=== PATIENT | female | born 2000 | race Hispanic/Latino ===

== ENCOUNTER 2019-02-12 09:30 | Outpatient (CLI) | payer OTHER ==
--- NOTE | 2019-02-12 11:49 | ULT ---
PELVIC ULTRASOUND: Date: 02/12/19 COMPARISON: None. HISTORY: Abnormal uterine bleeding. TECHNIQUE: Multiplanar Pedro scale and color Doppler images were obtained in a transabdominal pelvic ultrasound. A transvaginal approach was not performed as the patient is not sexually active. Spectral analysis of the Doppler waveforms of the ovaries were performed. FINDINGS: The uterus is normal in size and appearance without focal abnormality. The endometrial stripe is norm al in thickness measuring 7.0 mm. Both ovaries are normal in size and appearance and demonstrate normal internal flow. Multiple follicl es are seen in the left ovary. No free fluid is seen in the pelvis. IMPRESSION: No significant pelvic abnormality. POS: [facility]
== END 2019-02-12 09:31 | disposition home or self-care (01) ==
LOC: BICULT 09:30
PROVIDERS: ATTEND Family Medicine
DX: N93.9 Abnormal uterine and vaginal bleeding, unspecified (principal)
CPT/HCPCS: 76856; 93976